=== PATIENT | male | born 1945 | race Caucasian/White ===

== ENCOUNTER 2019-06-27 06:59 | Outpatient (CLI) | payer MEDICARE, SELFPAY ==
[2019-06-27 07:10] LABS: Add Urine Microscopic? NO; Appearance Urine Clear (Clear); Basophils Absolute Auto 0.05 K/mm3 (0.00-0.10); Basophils Percent Auto 0.8 % (0.0-1.0); Bilirubin Urine Negative (Negative); Blood Urine Negative (Negative); Color Urine Yellow (Yellow); Eosinophils Percent Auto 1.6 % (1.0-6.0); Glucose Urine UA Negative (Negative); Hematocrit 50.9 % (37.0-46.0); Hemoglobin 16.6 g/dL (12.4-15.3); Immature Granulocyte Absolute 0.01 K/mm3 (0.00-0.00); Immature Granulocyte Percent A 0.2 % (0.0-0.0); Ketones Urine Negative (Negative); Leukocyte Esterase Ur Negative (Negative); Lymphocytes Absolute Auto 2.27 K/mm3 (1.10-4.50); Lymphocytes Percent Auto 35.2 % (18.0-42.0); Mean Corpuscular HGB Conc 32.6 g/dL (32.0-36.0); Mean Corpuscular Hemoglobin 29.7 pg (27.0-31.0); Mean Corpuscular Volume 91.2 fL (78.0-102.0); Mean Platelet Volume 8.6 fl (8.7-11.0); Monocytes Absolute Auto 0.65 K/mm3 (0.10-0.90); Monocytes Percent Auto 10.1 % (2.0-11.0); Neutrophils Absolute Auto 3.4 K/mm3 (1.7-7.2); Neutrophils Percent Auto 52.1 % (50.0-70.0); Nitrate Urine Negative (Negative); Platelet Count Result 242 K/mm3 (150-420); Protein Urine Negative (Negative); Red Blood Count 5.58 M/mm3 (4.70-6.10); Red Cell Distribution Width 12.6 % (11.6-14.4); Specific Grav Ur 1.015 (1.010-1.020); Urobilinogen Urine 0.2 mg/dL (0.2-1.0); White Blood Count 6.5 K/mm3 (4.8-10.8)
[2019-06-27 08:24] LABS: Alanine Aminotransferase 34 U/L (16-63); Albumin Level 4.2 g/dL (3.4-5.0); Alkaline Phosphatase 97 U/L (46-116); Anion Gap 14.3 mmol/L (7-16); Aspartate Amino Transferase 26 U/L (15-37); Bilirubin,Total 0.8 mg/dL (0.00-1.00); Blood Urea Nitrogen 17 mg/dL (7-18); Calcium 9.2 mg/dL (8.5-10.1); Carbon Dioxide 30 mmol/L (21-32); Chloride 102 mmol/L (98-108); Cholesterol 163 mg/dL (0-200); Estimated Glomerular Filt Rate > 60; Glucose 87 mg/dL (70-99); HDL Direct 62 mg/dL (40-60); LDL Cholesterol Calculated 91 mg/dL (<130); Osmolality Calculated 294 mOsm/kg (285-295); Potassium 4.3 mmol/L (3.5-5.1); Sodium 142 mmol/L (136-145); Total Protein 7.3 g/dL (6.4-8.2); Triglycerides 52 mg/dL (0-150)
== END 2019-06-27 07:00 | disposition home or self-care (01) ==
PROVIDERS: PCP Internal Medicine; Visit Provider Internal Medicine
DX: E78.5 Hyperlipidemia, unspecified (principal); D50.9 Iron deficiency anemia, unspecified; I10 Essential (primary) hypertension
CPT/HCPCS: 36415; 80053; 80061; 81003; 85025

== ENCOUNTER 2019-09-21 08:32 | Outpatient (CLI) | payer MEDICARE, BC, SELFPAY ==
--- NOTE | ~2019-09-21 | XR_ITS ---
XR foot LT min 3V DATE: 09/21/2019 08:52 INDICATION: Left generalized foot pain TECHNIQUE: 3 weightbearing views COMPARISON: None FINDINGS: Distal Achilles tendon calcification. There is osteoarthritic change at the first metatarsophalangeal joint. There is osteoarthritic change at some of the interphalangeal joints. There is widening of the space between the second and third toes. No fracture, dislocation, periosteal reaction or bone destruction is evident. IMPRESSION: Polyarticular osteoarthritis Distal Achilles tendon calcification Reviewed, dictated and finalized at location B.
== END 2019-09-21 08:33 | disposition home or self-care (01) ==
PROVIDERS: PCP Internal Medicine; Visit Provider Orthopaedic Surgery
DX: M79.672 Pain in left foot (principal)
CPT/HCPCS: 73630

== ENCOUNTER 2020-01-13 07:09 | Outpatient (CLI) | payer MEDICARE, SELFPAY ==
[2020-01-13 07:23] LABS: Add Urine Microscopic? NO; Appearance Urine Clear (Clear); Bilirubin Urine Negative (Negative); Blood Urine Negative (Negative); Color Urine Yellow (Yellow); Glucose Urine UA Negative (Negative); Ketones Urine Negative (Negative); Leukocyte Esterase Ur Negative (Negative); Nitrate Urine Negative (Negative); Protein Urine Negative (Negative); pH Urine 6.5 (5.0-8.0)
[2020-01-13 07:25] LABS: Basophils Absolute Auto 0.04 K/mm3 (0.00-0.10); Basophils Percent Auto 0.7 % (0.0-1.0); Eosinophils Absolute Auto 0.14 K/mm3 (0.02-0.50); Eosinophils Percent Auto 2.4 % (1.0-6.0); Hematocrit 49.8 % (37.0-46.0); Hemoglobin 16.3 g/dL (12.4-15.3); Immature Granulocyte Absolute 0.02 K/mm3 (0.00-0.00); Immature Granulocyte Percent A 0.3 % (0.0-0.0); Lymphocytes Absolute Auto 1.94 K/mm3 (1.10-4.50); Lymphocytes Percent Auto 33.2 % (18.0-42.0); Mean Corpuscular HGB Conc 32.7 g/dL (32.0-36.0); Mean Corpuscular Volume 91.7 fL (78.0-102.0); Mean Platelet Volume 8.6 fl (8.7-11.0); Monocytes Absolute Auto 0.59 K/mm3 (0.10-0.90); Monocytes Percent Auto 10.1 % (2.0-11.0); Neutrophils Absolute Auto 3.1 K/mm3 (1.7-7.2); Neutrophils Percent Auto 53.3 % (50.0-70.0); Platelet Count Result 257 K/mm3 (150-420); Red Blood Count 5.43 M/mm3 (4.70-6.10); Red Cell Distribution Width 12.7 % (11.6-14.4); White Blood Count 5.8 K/mm3 (4.8-10.8)
[2020-01-13 09:00] LABS: Alanine Aminotransferase 31 U/L (16-63); Albumin Level 4.1 g/dL (3.4-5.0); Alkaline Phosphatase 101 U/L (46-116); Anion Gap 7 mmol/L (8-16); Aspartate Amino Transferase 21 U/L (15-37); Bilirubin,Total 0.9 mg/dL (0.00-1.00); Blood Urea Nitrogen 19 mg/dL (7-18); Calcium 8.7 mg/dL (8.5-10.1); Carbon Dioxide 30 mmol/L (21-32); Chloride 103 mmol/L (98-108); Cholesterol 160 mg/dL (0-200); Creatine Kinase 77 U/L (39-308); Estimated Glomerular Filt Rate > 60; Ferritin 167 ng/mL (26-388); Glucose 88 mg/dL (70-99); HDL Direct 54 mg/dL (40-60); Iron 120 ug/dL (65-175); LDL Cholesterol Calculated 94 mg/dL (<130); Osmolality Calculated 291 mOsm/kg (285-295); Percent Iron Saturation 36 % (12-57); Potassium 4.4 mmol/L (3.5-5.1); Sodium 140 mmol/L (136-145); Total Protein 7.1 g/dL (6.4-8.2); Triglycerides 62 mg/dL (0-150)
== END 2020-01-13 07:10 | disposition home or self-care (01) ==
PROVIDERS: PCP Internal Medicine; Visit Provider Internal Medicine
DX: D50.0 Iron deficiency anemia secondary to blood loss (chronic) (principal); I10 Essential (primary) hypertension
CPT/HCPCS: 36415; 80053; 80061; 81003; 82550; 82728; 83540; 83550; 85025

== ENCOUNTER 2020-07-16 07:08 | Outpatient (CLI) | payer MEDICARE, BC, SELFPAY ==
[2020-07-16 07:24] LABS: Basophils Absolute Auto 0.04 K/mm3 (0.00-0.10); Basophils Percent Auto 0.7 % (0.0-1.0); Eosinophils Percent Auto 1.7 % (1.0-6.0); Hematocrit 48.1 % (37.0-46.0); Hemoglobin 15.8 g/dL (12.4-15.3); Immature Granulocyte Absolute 0.01 K/mm3 (0.00-0.00); Immature Granulocyte Percent A 0.2 % (0.0-0.0); Lymphocytes Absolute Auto 1.67 K/mm3 (1.10-4.50); Lymphocytes Percent Auto 28.4 % (18.0-42.0); Mean Corpuscular HGB Conc 32.8 g/dL (32.0-36.0); Mean Corpuscular Hemoglobin 30.4 pg (27.0-31.0); Mean Corpuscular Volume 92.5 fL (78.0-102.0); Mean Platelet Volume 8.6 fl (8.7-11.0); Monocytes Absolute Auto 0.57 K/mm3 (0.10-0.90); Monocytes Percent Auto 9.7 % (2.0-11.0); Neutrophils Absolute Auto 3.5 K/mm3 (1.7-7.2); Neutrophils Percent Auto 59.3 % (50.0-70.0); Platelet Count Result 301 K/mm3 (150-420); Red Cell Distribution Width 13.2 % (11.6-14.4); White Blood Count 5.9 K/mm3 (4.8-10.8)
[2020-07-16 07:37] LABS: Add Urine Microscopic? NO; Appearance Urine Clear (Clear); Bilirubin Urine Negative (Negative); Blood Urine Negative (Negative); Color Urine Yellow (Yellow); Glucose Urine UA Negative (Negative); Ketones Urine Negative (Negative); Leukocyte Esterase Ur Negative (Negative); Nitrate Urine Negative (Negative); Protein Urine Negative (Negative); Urobilinogen Urine 0.2 mg/dL (0.2-1.0); pH Urine 7.5 (5.0-8.0)
[2020-07-16 08:54] LABS: Alanine Aminotransferase 32 U/L (16-63); Albumin Level 3.8 g/dL (3.4-5.0); Alkaline Phosphatase 118 U/L (46-116); Anion Gap 8 mmol/L (8-16); Aspartate Amino Transferase 18 U/L (15-37); Bilirubin,Total 0.7 mg/dL (0.00-1.00); Blood Urea Nitrogen 11 mg/dL (7-18); Carbon Dioxide 31 mmol/L (21-32); Chloride 102 mmol/L (98-108); Cholesterol 174 mg/dL (0-200); Estimated Glomerular Filt Rate > 60; Ferritin 176 ng/mL (26-388); Glucose 86 mg/dL (70-99); HDL Direct 61 mg/dL (40-60); Iron 94 ug/dL (65-175); LDL Cholesterol Calculated 96 mg/dL (<130); Osmolality Calculated 290 mOsm/kg (285-295); Percent Iron Saturation 28 % (12-57); Potassium 4.6 mmol/L (3.5-5.1); Sodium 141 mmol/L (136-145); Total Protein 6.8 g/dL (6.4-8.2); Triglycerides 84 mg/dL (0-150)
== END 2020-07-16 07:09 | disposition home or self-care (01) ==
LOC: CHSLAB 07:10
PROVIDERS: PCP Internal Medicine; Visit Provider Internal Medicine
DX: D50.9 Iron deficiency anemia, unspecified (principal); I10 Essential (primary) hypertension; E78.5 Hyperlipidemia, unspecified
CPT/HCPCS: 36415; 80053; 80061; 81003; 82728; 83540; 83550; 85025

== ENCOUNTER 2020-08-02 11:55 | Outpatient (CLI) | payer MEDICARE, BC, SELFPAY ==
--- NOTE | ~2020-08-02 | XR_ITS ---
XR chest 2V 08/02/2020 12:24 Indication: Atrial fibrillation Procedure: 2 view chest Comparison: Comparison to multiple prior studies sequentially, with oldest reviewed study dated 10/05. Findings: Large hiatal hernia. No focal air space disease, pulmonary edema, pleural effusion or suspe cted pneumothorax. Mildly elevated left diaphragm, chronic. Chronic compression fracture of a midthor acic vertebra with vertebroplasty change. No acute osseous abnormality. Impression: 1: No acute cardiopulmonary disease. Reviewed, dictated and finalized at location A. Impression: 1: No acute cardiopulmonary disease.
[2020-08-02 12:53] LABS: Free T3 2.53 pg/mL (2.18-3.98); Free T4 Free Thyroxine 0.88 ng/dL (0.76-1.46); Magnesium 2.1 mg/dL (1.8-2.4); Thyroid Stimulating Hormone 1.03 uIU/mL (0.36-3.74)
--- NOTE | 2020-08-03 13:34 | WPDHOLTEREM ---
Holter/Event Monitor Holter/Event Monitor Date of procedure: 08/02/20 Procedure Type: 24 hour holter monitor Indications: Atrial fibrillation Conclusion: 1. 24 hour holter monitor on 08/02/20. 2. Underlying rhythm is sinus rhythm. HR range 51-118 bpm; average HR 65 bpm. 3. There are 154 premature supraventricular complexes and 1 supraventricular couplets. No supraventricular tachycardia. 4. There are 92 premature ventricular complexes. No ventricular tachycardia. 5. No sinoatrial or atrioventricular blocks. No significant pauses greater than 2 seconds. 6. Patient reports an episode of symptom of chest heaviness which demonstrate sinus rhythm at 65 bpm.
== END 2020-08-02 11:56 | disposition home or self-care (01) ==
LOC: CHSLAB 11:58
PROVIDERS: PCP Internal Medicine; Visit Provider Internal Medicine
DX: I48.91 Unspecified atrial fibrillation (principal)
CPT/HCPCS: 36415; 71046; 83735; 84439; 84443; 84481; 93225; 93226

== ENCOUNTER 2020-08-05 12:27 | Outpatient (CLI) | payer MEDICARE, BC, SELFPAY | END 2020-08-05 12:28 | disposition home or self-care (01) | LOC: CHSIMG 12:30 | PROVIDERS: PCP Internal Medicine; Visit Provider Internal Medicine | DX: I48.91 Unspecified atrial fibrillation (principal) | CPT/HCPCS: C8929 ==

== ENCOUNTER 2020-08-29 08:03 | Outpatient (CLI) | payer MEDICARE, BC, SELFPAY ==
--- NOTE | 2020-08-29 09:30 | EST_ITS ---
Patient Info Name: Tc Engel Age: 74 years : 1945 Gender: Male Ht: 69 in Wt: 202 lbs BSA: 2.14 m2 HR: 58 bpm BP: 147 / 97 mmHg Heart Rhythm: Bradycardia Technical Quality: Excellent Exam Date: 08/29/2020 9:35 AM Exam Location: [facility] Patient Status: Outpatient Admit Date: 08/29/2020 Staff Ordering Physician: Kelsea, Ami Ford APRN Attending Provider: Haris, Ami Ford APRN Exercise Technologist: Radha Grimes CRT Exercise Physician: Raven Carpenter CEP Exam Type: CA stress jarad w NM Study Info Indications AFIb - ChestPain - A nuclear stress test was performed. History/Risk Factors Hypertension: Yes Dyslipidemia: No Congenital Heart Disease (CHD): No Peripheral Arterial Disease (PAD): No Myocardial Infarction (OR): No Obesity: No Renal Disease: No Congestive Heart Failure (CHF): No Cardiomyopathy/LV Systolic Dysfunction: No Diabetes Mellitus: No COPD: No Tobacco Use: Former Cerebrovascular Disease: No Family History: Congenital Heart Disease DVT Treatment: Apixaban Deep Vein Thrombosis (DVT): None Dialysis: None History/Risk Factors HTN. Frailty Scale (CSHA): 2: Well Cardiac Arrest: No Summary 1. 1. Negative lexiscan stress test for ischemic ST changes by ECG criteria. 2. 2. Stable hemodynamics throughout the test. 3. 3. Nuclear scan to follow and will be reported separately. Please correlate with it. Protocol: LEXISCAN Stress ECG Details Stage: REST Duration (min): 1 min : 58 sec HR (bpm): 58 SBP (mmHg): 147 DBP (mmHg): 97 Stage: REST Duration (min): 10 min : 57 sec HR (bpm): 55 SBP (mmHg): 147 DBP (mmHg): 97 Stage: STAGE 1 Duration (min): 0 min : 6 sec HR (bpm): 58 SBP (mmHg): 147 DBP (mmHg): 97 Stage: RECOVERY Duration (min): 0 min : 53 sec HR (bpm): 67 SBP (mmHg): 147 DBP (mmHg): 97 Stage: RECOVERY Duration (min): 1 min : 53 sec HR (bpm): 78 SBP (mmHg): 118 DBP (mmHg): 79 Stage: RECOVERY Duration (min): 2 min : 53 sec HR (bpm): 72 SBP (mmHg): 113 DBP (mmHg): 80 Stage: RECOVERY Duration (min): 3 min : 53 sec HR (bpm): 70 SBP (mmHg): 124 DBP (mmHg): 82 Stage: RECOVERY Duration (min): 4 min : 53 sec HR (bpm): 70 SBP (mmHg): 129 DBP (mmHg): 82 Stage: RECOVERY Duration (min): 5 min : 53 sec HR (bpm): 67 SBP (mmHg): 129 DBP (mmHg): 82 Stage: RECOVERY Duration (min): 6 min : 5 sec HR (bpm): 66 SBP (mmHg): 129 DBP (mmHg): 82 Rest HR: 55 bpm Peak HR: 78 bpm Rest Sys BP: 147 mmHg Peak Sys BP: 129 mmHg Max Pred HR: 145 bpm % Max Pred HR: 54 % Target HR: 123 bpm Max RPP: 10,062 bpm*mmHg Termination Reason: Completion of Protocol Cardiac Symptoms: Dyspnea Total Time: 0 min : 6 sec Rest Garcia BP: 97 mmHg Peak Garcia BP: 82 mmHg Total Dose: 0.4 mg Resting ECG Sinus bradycardia, IRBBB. Stress ECG No ST adrienne
--- NOTE | 2020-08-29 12:49 | WPDCARIOSTRE ---
Nuclear Stress Test INDICATIONS Indications: Chest pain PROCEDURE Procedure Performed: Myocardial Perf Spect-Multi Procedure: Patient underwent a lexiscan stress test and immediately was injected with 32.6 mCi of cardiolyte. Multiple tomographic images were obtained. These are of good quality. There is no evidence of decreased perfusion with stress imaging. A separate resting images were obtained after patient was injected with 9.9 mCi of cardiolyte. Multiple tomographic images were obtained. These are of good quality. There is no evidence of decreased perfusion with rest imaging. CONCLUSION Conclusion: 1. Normal myocardial perfusion imaging demonstrating no evidence of decreased perfusion during stress or rest imaging. 2. No reversible ischemia. 3. Left ventriculogram demonstrates normal measured ejection fraction of 62% with no wall motion abnormalities. 4. TID score is normal at 1.14.
== END 2020-08-29 08:04 | disposition home or self-care (01) ==
LOC: CHSIMG 08:04
PROVIDERS: PCP Internal Medicine; Visit Provider Internal Medicine Cardiovascular Disease
DX: R07.9 Chest pain, unspecified (principal); I48.91 Unspecified atrial fibrillation; I10 Essential (primary) hypertension; R26.2 Difficulty in walking, not elsewhere classified
CPT/HCPCS: 78452; 93017; A9502; J2785

== ENCOUNTER 2021-06-23 06:59 | Outpatient (CLI) | payer MEDICARE, SELFPAY ==
[2021-06-23 07:12] LABS: Add Urine Microscopic? NO; Appearance Urine Clear (Clear); Basophils Absolute Auto 0.04 K/mm3 (0.00-0.10); Basophils Percent Auto 0.6 % (0.0-1.0); Bilirubin Urine Negative (Negative); Blood Urine Negative (Negative); Color Urine Light Yellow (Yellow); Eosinophils Absolute Auto 0.15 K/mm3 (0.02-0.50); Eosinophils Percent Auto 2.3 % (1.0-6.0); Glucose Urine UA Negative (Negative); Hematocrit 46.4 % (37.0-46.0); Hemoglobin 15.5 g/dL (12.4-15.3); Immature Granulocyte Absolute 0.02 K/mm3 (0.00-0.00); Immature Granulocyte Percent A 0.3 % (0.0-0.0); Ketones Urine Negative (Negative); Leukocyte Esterase Ur Negative LEU/UL (Negative); Lymphocytes Absolute Auto 2.16 K/mm3 (1.10-4.50); Lymphocytes Percent Auto 33.4 % (18.0-42.0); Mean Corpuscular HGB Conc 33.4 g/dL (32.0-36.0); Mean Corpuscular Hemoglobin 30.9 pg (27.0-31.0); Mean Corpuscular Volume 92.4 fL (78.0-102.0); Mean Platelet Volume 8.7 fl (8.7-11.0); Monocytes Percent Auto 9.3 % (2.0-11.0); Neutrophils Absolute Auto 3.5 K/mm3 (1.7-7.2); Neutrophils Percent Auto 54.1 % (50.0-70.0); Nitrate Urine Negative (Negative); Platelet Count Result 236 K/mm3 (150-420); Protein Urine Negative (Negative); Red Blood Count 5.02 M/mm3 (4.70-6.10); Red Cell Distribution Width 13.3 % (11.6-14.4); Specific Grav Ur 1.015 (1.010-1.020); Urobilinogen Urine 0.2 mg/dL (0.2-1.0); White Blood Count 6.5 K/mm3 (4.8-10.8); pH Urine 7.5 (5.0-8.0)
[2021-06-23 08:17] LABS: Alanine Aminotransferase 31 U/L (16-63); Albumin Level 3.8 g/dL (3.4-5.0); Alkaline Phosphatase 104 U/L (46-116); Anion Gap 6 mmol/L (8-16); Aspartate Amino Transferase 18 U/L (15-37); Bilirubin,Total 0.7 mg/dL (0.00-1.00); Blood Urea Nitrogen 14 mg/dL (7-18); Carbon Dioxide 30 mmol/L (21-32); Chloride 103 mmol/L (98-108); Cholesterol 152 mg/dL (0-200); Estimated Glomerular Filt Rate > 60; Ferritin 95 ng/mL (26-388); Glucose 91 mg/dL (70-99); HDL Direct 62 mg/dL (40-60); Iron 84 ug/dL (65-175); LDL Cholesterol Calculated 76 mg/dL (<130); Osmolality Calculated 288 mOsm/kg (285-295); Percent Iron Saturation 26 % (12-57); Potassium 4.4 mmol/L (3.5-5.1); Sodium 139 mmol/L (136-145); Total Protein 6.5 g/dL (6.4-8.2); Triglycerides 69 mg/dL (0-150)
== END 2021-06-23 07:00 | disposition home or self-care (01) ==
LOC: CHSLAB 07:01
PROVIDERS: PCP Internal Medicine; Visit Provider Internal Medicine
DX: I10 Essential (primary) hypertension (principal); D50.0 Iron deficiency anemia secondary to blood loss (chronic); N39.0 Urinary tract infection, site not specified
CPT/HCPCS: 36415; 80053; 80061; 81003; 82728; 83540; 83550; 85025

== ENCOUNTER 2021-07-18 08:48 | Outpatient (CLI) | payer MEDICARE, BC, SELFPAY | END 2021-07-18 08:49 | disposition home or self-care (01) | LOC: CHSOUTPT 09:11 | PROVIDERS: PCP Internal Medicine; Visit Provider Specialist | DX: C44.629 Squamous cell carcinoma of skin of left upper limb, including shoulder (principal) | CPT/HCPCS: 88305 ==

== ENCOUNTER 2021-12-12 10:30 | Outpatient (CLI) | payer MEDICARE, BC, SELFPAY ==
--- NOTE | ~2021-12-12 | XR_ITS ---
EXAMINATION: XR lumbar spine 2-3V DATE: 12/12/2021 10:59 INDICATION: Low back pain. TECHNIQUE: 3 views of lumbar spine were obtained. COMPARISON: Chest 2 views 08/02/2020 FINDINGS: There is 8 degrees dextrocurvature of thoracolumbar spine. There is a compression fracture of T12 with 2/5 loss of height. There is mildly decreased disc height at L4-L5. There is multilevel f acet joint osteoarthritis, severe in lower lumbar spine. IMPRESSION: 1. Age-indeterminate T12 compression fracture, new from 08/02/2020. 2. Mild lumbar spondylosis. Reviewed, dictated and finalized at location A.
--- NOTE | ~2021-12-12 | XR_ITS ---
XR thoracic spine 3V DATE: 12/12/2021 11:00 INDICATION: Acute mid and low back pain TECHNIQUE: AP, lateral, swimmer views COMPARISON: 04/27/2013 CT thorax FINDINGS: Mild anterolisthesis at C4-5. Severe degenerative disc disease at C5-6. Mild thoracic spine dextroscoliosis. Chronic moderate compression fracture and vertebroplasty at T9. Moderate anterior wedge compression fracture deformity of T12 of uncertain age. Mild degenerative spurring of the thoracic spine. No paraspinal soft tissue thickening. Diffuse osteopenia. Large chronic hiatal hernia, also present on 04/27/2013. IMPRESSION: Mild T12 compression fracture of uncertain age, new since 04/27/2013 Chronic T9 compression fracture and vertebroplasty Osteopenia Mild degenerative change Mild dextroscoliosis Osteopenia Reviewed, dictated and finalized at location A.
--- NOTE | ~2021-12-12 | XR_ITS ---
EXAMINATION: XR hip LT min 2V DATE: 12/12/2021 10:58 INDICATION: Left hip deformity. TECHNIQUE: 2 views of left hip were obtained. COMPARISON: None. FINDINGS: Bone alignment is normal. No fracture. There is moderate left hip osteoarthritis. IMPRESSION: 1. Moderate left hip osteoarthritis. Reviewed, dictated and finalized at location A.
--- NOTE | ~2021-12-12 | XR_ITS ---
EXAMINATION: XR hip RT min 2V DATE: 12/12/2021 10:59 INDICATION: Back pain. TECHNIQUE: 2 views of right hip were obtained. COMPARISON: None. FINDINGS: Bone alignment is normal. No fracture. There is mild right hip osteoarthritis. IMPRESSION: 1. Mild right hip osteoarthritis. Reviewed, dictated and finalized at location A.
== END 2021-12-12 10:31 | disposition home or self-care (01) ==
PROVIDERS: PCP Internal Medicine; Visit Provider Internal Medicine
DX: M54.6 Pain in thoracic spine (principal); M54.50 Low back pain, unspecified
CPT/HCPCS: 72072; 72100; 73502

== ENCOUNTER 2021-12-13 14:54 | Outpatient (CLI) | payer MEDICARE, BC, SELFPAY ==
--- NOTE | ~2021-12-13 | CT_ITS ---
EXAMINATION: CT lumbar spine wo con DATE: 12/13/2021 15:26 INDICATION: Back pain. Fracture. TECHNIQUE: Computed tomography (CT) of the lumbar spine was performed without intravenous contrast. T he dose-length product was 725.31 mGy-cm. Automated exposure control and iterative reconstruction barry hnique were employed. COMPARISON: Lumbar spine series dated 12/12/2021 FINDINGS: There is an acute/subacute burst fracture of T12 with approximately 30% loss of vertebral b juan height anteriorly. There is degenerative disc disease at T11-12. There is lower lumbar facet hype rtrophy with grade 1 degenerative spondylolisthesis at L4-5. There is a 4 mm right UVJ stone with rig ht hydroureteronephrosis. Colonic diverticulosis without diverticulitis. There is atherosclerosis of the aorta. IMPRESSION: 1. Acute/subacute T12 burst fracture, stable compared with 12/12/2021. 2: Right UVJ stone measuring 4 mm with mild right hydroureteronephrosis. 3: Moderate lumbar spondylosis. Reviewed, dictated and finalized at location B.
--- NOTE | ~2021-12-13 | CT_ITS ---
EXAMINATION: CT thoracic spine wo con DATE: 12/13/2021 15:27 INDICATION: Back pain. T12 fracture. TECHNIQUE: Computed tomography (CT) of the thoracic spine was performed without intravenous contrast. Automated exposure control and iterative reconstruction technique were employed. The dose-length pro duct was 891.79 mGy-cm. COMPARISON: Thoracic spine radiographs 12/12/2021 FINDINGS: There is a large sliding hiatal hernia. There is a portion of the transverse colon in the h ernia. There is mild right hydronephrosis and hydroureter. There is a 4 mm stone at right ureterovesi cular junction. There is kyphosis of thoracic spine. There is 11 degrees dextroscoliosis of thoracic spine. There is mild chronic anterior wedging of T4, T7, T8, T10, and T11 vertebral bodies. There is a chronic compression fracture of T9 with changes of vertebroplasty. There is a burst fracture of T12 with 1/5 loss of height and retropulsion of bone 2 mm into central spinal canal. There is mild to mo derately decreased disc height at multiple levels. There is facet joint osteoarthritis at many levels , severe on the right at T2-T3 and T3-T4. There is multilevel mild neural foraminal stenosis bilatera lly. There is mild central canal stenosis at T7-T8 and T11-T12. IMPRESSION: 1. Acute/subacute T12 burst fracture, stable from 12/12/21. 2. Moderate thoracic spondylosis. 3. 4 mm stone at right ureterovesicular junction with mild right hydronephrosis and hydroureter. 4. Large sliding hiatal hernia. Reviewed, dictated and finalized at location A.
== END 2021-12-13 14:55 | disposition home or self-care (01) ==
LOC: CHSIMG 14:56
PROVIDERS: PCP Internal Medicine; Visit Provider Internal Medicine
DX: M54.50 Low back pain, unspecified (principal)
CPT/HCPCS: 72128; 72131

== ENCOUNTER 2021-12-15 09:01 | Outpatient (CLI) | payer MEDICARE, BC, SELFPAY ==
--- NOTE | ~2021-12-15 | XR_ITS ---
XR abdomen/kub 1V 12/15/2021 09:24 Indication: Right ureteral stone. Right flank pain. Procedure: KUB Comparison: 01/24/2010 Findings: Bowel gas pattern is nonobstructive. No definite renal stones. The left kidney is obscured by bowel content. There are pelvic phleboliths. There is a new calcification in the right pelvis, con sistent with distal ureteral stone. Nonobstructive bowel pattern. There is moderate lumbar spondylosis. There is a large hiatal hernia. Impression: 1: Distal right ureteral stone near the UPJ measuring 4 mm. Reviewed, dictated and finalized at location B. Impression: 1: Distal right ureteral stone near the UPJ measuring 4 mm.
== END 2021-12-15 09:02 | disposition home or self-care (01) ==
PROVIDERS: PCP Internal Medicine; Visit Provider Urology
DX: R10.9 Unspecified abdominal pain (principal); N20.1 Calculus of ureter
CPT/HCPCS: 74018

== ENCOUNTER 2022-01-31 08:47 | Outpatient (RCR) | payer MEDICARE, BC, SELFPAY ==
--- NOTE | 2022-01-31 08:05 | PTOPEVAL1 ---
Assessment and note entered by JT File, PT Evaluation Information Assessment Status Evaluation Diagnosis s/p T12 kypho, low back pain, thoracic pain Onset 01/15/22 Subjective Information patient reports he is anxious to get back to the gym. he reports prior to needing surgery he was in the gym 5 days per week. he reports he had a cemented T12 surgery to fix a compression fracture . he reports he was having pain in the back for a while, and tried to use modalities on his own at home. he reports he eventually had an xray and then surgery. he reports since surgery he has been slowly getting back into the gym. he reports the pain from his compression fracture is gone. he reports the only pain he has had has been in the muscles of his back when lifting. Reported Pain Level Pain Score 0: Self Report Assessment PT Clinical Summary mr. mike presents to skilled PT about 2 weeks post T12 spinal cementing surgery. he presents this date with no pain, normal gait mechanics, good LE strength, but weakness of the core and poor posture. he would do well to attend skilled PT to improve his core strength, postural awareness, and return to all prior level activities with decreased risk for re-injury. Plan of Care Interventions Manual Therapy,Neuro Re-education,Patient/ Caregiver Educati,Therapeutic Activities, Therapeutic Exercise PT Services Indicated Yes Treatment Frequency and 1x weekly for 3 visits Duration These treatments will address the objective and functional deficits as defined above. The patient will be advanced safely and appropriately in order for the patient to progress towards his/her prior level of function. Additional exercises will be introduced and as well as a comprehensive home exercise program upon discharge, if needed, ?to ensure carryover of functional gains achieved in the clinic. This treatment plan has been reviewed and agreement upon by the patient.
--- NOTE | 2022-02-14 09:10 | PTOPDC ---
Assessment and note entered by JT File, PT Evaluation Information Assessment Status Discharge Diagnosis s/p T12 kypho, low back pain, thoracic pain Onset 01/15/22 Subjective Information patient reports he feels good this date. he reports he is back to the gym and ready to DC therapy. Reported Pain Level Pain Score 0: Self Report Assessment PT Clinical Summary mr. mike presents to PT for his 3rd skilled therapy visit this date. he has made improvements in core strength, lifting mechanics, and pain reduction. he has not met many goals, but is back to his prior level functional activities. he will DC skilled PT this date and continue with HEP independent at home. Plan of Care Treatment Frequency and DC to independent HEP Duration
== END 2022-02-14 16:01 | disposition home or self-care (01) ==
LOC: CHSPT 08:47
PROVIDERS: PCP Internal Medicine; Visit Provider Nurse Practitioner Family
DX: M54.6 Pain in thoracic spine (principal); M54.50 Low back pain, unspecified
CPT/HCPCS: 97110; 97161; 97530

== ENCOUNTER 2022-05-28 07:12 | Outpatient (CLI) | payer MEDICARE, SELFPAY ==
[2022-05-28 07:35] LABS: Basophils Absolute Auto 0.03 K/mm3 (0.00-0.10); Basophils Percent Auto 0.4 % (0.0-1.0); Eosinophils Absolute Auto 0.13 K/mm3 (0.02-0.50); Eosinophils Percent Auto 1.9 % (1.0-6.0); Hematocrit 43.2 % (37.0-46.0); Hemoglobin 14.2 g/dL (12.4-15.3); Immature Granulocyte Absolute 0.02 K/mm3 (0.00-0.00); Immature Granulocyte Percent A 0.3 % (0.0-0.0); Lymphocytes Absolute Auto 1.44 K/mm3 (1.10-4.50); Lymphocytes Percent Auto 21.5 % (18.0-42.0); Mean Corpuscular HGB Conc 32.9 g/dL (32.0-36.0); Mean Corpuscular Hemoglobin 30.3 pg (27.0-31.0); Mean Corpuscular Volume 92.3 fL (78.0-102.0); Mean Platelet Volume 8.3 fl (8.7-11.0); Monocytes Absolute Auto 0.62 K/mm3 (0.10-0.90); Monocytes Percent Auto 9.3 % (2.0-11.0); Neutrophils Absolute Auto 4.5 K/mm3 (1.7-7.2); Neutrophils Percent Auto 66.6 % (50.0-70.0); Platelet Count Result 261 K/mm3 (150-420); Red Blood Count 4.68 M/mm3 (4.70-6.10); Red Cell Distribution Width 13.3 % (11.6-14.4); White Blood Count 6.7 K/mm3 (4.8-10.8)
[2022-05-28 07:36] LABS: Appearance Urine Clear (Clear); Bilirubin Urine Negative (Negative); Blood Urine Negative (Negative); Glucose Urine UA Negative (Negative); Ketones Urine Negative (Negative); Leukocyte Esterase Ur Negative (Negative); Nitrate Urine Negative (Negative); Protein Urine Negative (Negative)
[2022-05-28 07:53] LABS: Add Urine Microscopic? YES; Bacteria Urine Trace /hpf; Color Urine Dark Yellow (Yellow); RBC Urine None seen /hpf (0-2); WBC Urine None seen /hpf (0-3)
[2022-05-28 08:22] LABS: Alanine Aminotransferase 29 U/L (16-63); Albumin Level 3.3 g/dL (3.4-5.0); Alkaline Phosphatase 129 U/L (46-116); Anion Gap 4 mmol/L (8-16); Aspartate Amino Transferase 25 U/L (15-37); Bilirubin,Total 0.8 mg/dL (0.00-1.00); Blood Urea Nitrogen 15 mg/dL (7-18); Calcium 8.8 mg/dL (8.5-10.1); Carbon Dioxide 32 mmol/L (21-32); Chloride 106 mmol/L (98-108); Estimated Glomerular Filt Rate > 60; Free T3 2.52 pg/mL (2.18-3.98); Free T4 Free Thyroxine 1.05 ng/dL (0.76-1.46); Glucose 95 mg/dL (70-99); Iron 77 ug/dL (65-175); NT Pro B Type Natriuretic Pept 287 pg/mL (0-450); Osmolality Calculated 294 mOsm/kg (285-295); Potassium 4.3 mmol/L (3.5-5.1); Prostate Specific Antigen 1.8 ng/mL (< OR = 4.0); Sodium 142 mmol/L (136-145); Thyroid Stimulating Hormone 0.61 uIU/mL (0.36-3.74); Total Protein 6.6 g/dL (6.4-8.2)
== END 2022-05-28 07:13 | disposition home or self-care (01) ==
PROVIDERS: PCP Internal Medicine; Visit Provider Internal Medicine
DX: D50.0 Iron deficiency anemia secondary to blood loss (chronic) (principal); I10 Essential (primary) hypertension; I48.19 Other persistent atrial fibrillation; Z12.5 Encounter for screening for malignant neoplasm of prostate; I50.9 Heart failure, unspecified
CPT/HCPCS: 36415; 80053; 81001; 83540; 83880; 84153; 84439; 84443; 84481; 85025; G0103

== ENCOUNTER 2022-09-07 08:07 | Outpatient (CLI) | payer MEDICARE, BC, SELFPAY ==
--- NOTE | ~2022-09-07 | CT_ITS ---
Clinical Indication: Weight loss CT Scan of the Chest, Abdomen, and Pelvis with Contrast: Technique: Contiguous sections were acquired throughout the chest, abdomen, and pelvis after intraven ous administration of 100 cc of Omnipaque 350. Dose reduction technique was used on this scan by noelle gregg automated exposure control and iterative reconstruction technique. The dose-length product (DL P) was 643.05 mGy-cm. COMPARISON: 01/10/2010 Findings: There is no evidence of any significant mediastinal, hilar or axillary lymphadenopathy. The mediastin al vascular structures appear normal. There is a large hiatal hernia, containing essentially the enti re stomach, with organoaxial volvulus. The also hernia also contains a large portion of the transvers e colon. There is no evidence of pleural or pericardial effusion. The lungs are clear. No pulmonary nodules or infiltrates are noted. The liver, spleen, pancreas, adrenals and kidneys are within normal limits. Gallbladder not visualize d. There are atherosclerotic calcifications of the aorta. No lymphadenopathy. No bowel obstruction or bowel wall thickening. There is extensive sigmoid diverticulosis. Urinary bladder is unremarkable. Prostate gland is significantly enlarged. No ascites. Vertebroplasty cement present at T9 and T12. Impression: Large hiatal hernia containing the entire stomach and a large portion of the transverse colon, as det douglas above. Enlarged prostate gland. Extensive sigmoid diverticulosis. Reviewed, dictated and finalized at location . Impression: Large hiatal hernia containing the entire stomach and a large portion of the tr ansverse colon, as detailed above. Enlarged prostate gland. Extensive sigmoid diverticulosis.
[2022-09-07 08:39] LABS: Estimated Glomerular Filt Rate > 60
== END 2022-09-07 08:08 | disposition home or self-care (01) ==
LOC: CHSIMG 08:09
PROVIDERS: PCP Internal Medicine; Visit Provider Internal Medicine
DX: R31.9 Hematuria, unspecified (principal); R63.4 Abnormal weight loss; K44.9 Diaphragmatic hernia without obstruction or gangrene; N40.0 Benign prostatic hyperplasia without lower urinary tract symptoms; K57.90 Diverticulosis of intestine, part unspecified, without perforation or abscess without bleeding
CPT/HCPCS: 71260; 74177; Q9967

== ENCOUNTER 2022-10-25 10:19 | Outpatient (CLI) | payer MEDICARE, BC, SELFPAY ==
--- NOTE | 2022-10-25 10:26 | ECG_ITS ---
Measurements Intervals [place] Rate: 62 P: 34 NC: 150 QRS: 31 QRSD: 90 T: 30 QT: 411 QTc: 419 Interpretive Statements SINUS RHYTHM INCOMPLETE RIGHT BUNDLE BRANCH BLOCK BASELINE ARTIFACT- I, II, III, AVR, AVL, AVF BORDERLINE ECG NO PREVIOUS ECG AVAILABLE FOR COMPARISON Electronically Signed On 10-25-2022 11:53:32 CDT by Nirav Burgess D.O.
[2022-10-25 10:42] LABS: Hematocrit 46.6 % (42.0-52.0); Hemoglobin 14.8 g/dL (14.0-18.0)
== END 2022-10-25 10:20 | disposition home or self-care (01) ==
LOC: ANHSURGERY 10:23
PROVIDERS: Anesthesiology; PCP Internal Medicine; Visit Provider Surgery
DX: K40.90 Unilateral inguinal hernia, without obstruction or gangrene, not specified as recurrent (principal); I10 Essential (primary) hypertension; Z78.9 Other specified health status; Z01.818 Encounter for other preprocedural examination; I45.10 Unspecified right bundle-branch block
CPT/HCPCS: 36415; 85014; 85018; 86850; 86900; 86901; 93005

== ENCOUNTER 2022-10-30 00:25 | Day surgery (SDC) | payer MEDICARE, BC, SELFPAY ==
--- NOTE | 2022-10-24 15:27 | PC.NURSE ---
Report to the Outpatient Waiting Room, entrance under the green pavilion located off [facility], at time 0630 on date _10/30/22 . Planned Procedure Time: _0830 . Time changes happen often and if your time is changed the preop area will call you the afternoon before. - You and your visitor will be asked to self-screen and do not enter if you have any COVID symptoms. - A mask is optional within the hospital at this time. Patients may have clear liquids (water, carbonated beverages, clear teas, apple juice) until 3 hours prior to surgery with a maximum of 20 ounces. - No food from midnight until time of surgery - Infants may have breast milk until 4 hours before surgery, infant formula 6 hours prior to surgery. - Children will be allowed to drink immediately following surgery. If applicable, please bring a bottle or sippy cup to assist with drinking. Juice, water, soda, and popsicles are readily available. For infants on formula, please bring formula the day of surgery. Pacifiers are allowed. Take the following medications with a SIP of water the morning of surgery: ____METOPROLOL DO NOT STOP ANY OF YOUR OTHER PRESCRIPTION MEDICATIONS PRIOR TO SURGERY ?EXCEPT THE FOLLOWING Medications to discontinue per physician ___ASPIRIN 325MG DECREASE TO 81MG ONE WK PRIOR TO SURGERY.. ALL VITAMINS AND SUPPLEMENTS 3 DAY S LAST DOSE 10/26/22 HIBICLENS SHOWER MORNING OF SURGERY Please no make-up, nail mongolian, hairspray, perfume, deodorant, or body powder the day of surgery. No jewelry (including any body piercings) or valuables the day of surgery, leave them at home. Please take a shower or bath the night before, or the morning of, surgery with an antibacterial soap. Wear comfortable, loose fitting clothing. Children are encouraged to wear pajamas. - Jewelry must be removed prior to entering the operating room. Rings and piercings that are not removed may be cut off. - The hospital will not accept responsibility for valuables. - Please leave all valuables, including medications, at home the day of surgery. If you are going home after surgery, a licensed dump truck driver off highway must drive you home. - NO public transportation without another adult if you receive anesthesia. - We recommend that an adult stay with you for 24 hours following discharge. - We also recommend that you do not drive, make important decision, drink alcoholic beverages, or take any drugs that were not prescribed by your health care provider for at least 24 hours after your discharge time. For Pediatric surgeries, we recommend two adults accompany the child home. Follow any additional instructions given to you from your surgeon. If you or anyone in your household have experienced Covid symptoms in the past week, please notify your surgeon or the nurse liaison at the phone number below for possible testing. Telephone instructions given to _PATIENT AND KENNEDY and asked if any additional questions and then verbalized understanding. Patient advised to call surgeon office or pre surgery nurse liaison [phone] if any additional questions.
[2022-10-24 15:37] VITALS: BMI 25.8
[2022-10-30] VITALS (8 sets, daily range): BP systolic 125–145; BP diastolic 69–80; PULSE 54–66; RESP 12–18; TEMP 36.4–36.6; O2SAT 94–100; BMI 23.8
[2022-10-30] MEDS: LACTATED RINGERS 1,000 ML 30 ML IV CONT ×2 (06:45→10:51)
[2022-10-30] MEDS: ACETAMINOPHEN 500 MG TABLET 1000 MG PO (06:56)
[2022-10-30] MEDS: KETOROLAC 15 MG/ML VIAL (*BKC) IV PUSH (06:57)
--- NOTE | 2022-10-30 07:14 | PM.IMHP ---
H&P: HPI History of Present Illness Date/Time: 10/30/22 07:14 Chief Complaint: [facility] Narrative: 77 yo man presents for left inguinal hernia repair. He denies any changes since last seen in office. Review of Systems Review of Systems: All systems reviewed & are unremarkable except as noted in HPI and below Constitutional: Constitutional: Denies chills, Denies fever(s), Denies headache(s) and Denies weight loss Eyes: Eyes: Denies change in vision ENT: Denies dizziness, Denies headache(s), Denies neck mass and Denies throat swelling Cardiovascular: Cardiovascular: Denies chest pain, Denies lightheadedness and Denies dyspnea Respiratory: Respiratory: Denies cough, Denies dyspnea and Denies wheezing Gastrointestinal: Gastrointestinal: Denies abdominal pain, Denies change in bowel habits, Denies nausea and Denies vomiting Genitourinary: Genitourinary: Denies hematuria and Denies dysuria Musculoskeletal: Musculoskeletal: Reports as per HPI Integumentary/Breasts: Skin/Breast: Reports as per HPI Neurologic: Denies dizziness and Denies headache(s) Allergic/Immunologic: Allergic/Immunologic: Denies throat swelling and Denies wheezing [facility] Past Medical History Medical History (Updated 09/20/22 @ 16:44 by Tez Ulrich DO) Arthritis of foot, left Atrial fibrillation COPD (chronic obstructive pulmonary disease) Hypertension Kidney stones Peroneal tendinitis of left lower leg Radiculopathy of leg Surgical History Surgical History (Updated 09/20/22 @ 16:44 by Tez Ulrich DO) History of cholecystectomy History of joint replacement History of major abdominal surgery Family History Family History Father Family history of heart disease in male family member before age 55 Other Hypertension Social History Social History Smoking packs per day: 0.5 Smoking cigarettes per day: 10.0 Years smoked: 25 Smoking pack-years: 12.50 Smoking status: Former smoker Tobacco type: cigarettes Smoking end date: 02/18/89 Alcohol intake: current Drinks per week: 1 Living arrangements: with family Spiritual care concerns: No Meds Home Medications and Allergies Home Medications Medication Instructions Recorded Confirmed Type multivitamin 1 cap PO DAILY 09/22/19 10/24/22 History aspirin 325 mg tablet 325 mg PO DAILY 09/20/22 10/24/22 History ferrous sulfate 325 mg (65 mg 325 mg PO 2XW 09/20/22 10/24/22 History iron) tablet,delayed release losartan 50 mg tablet 100 mg PO DAILY 09/20/22 10/24/22 History sildenafil 50 mg tablet (Viagra) 50 mg PO DAILY PRN Erectile 09/20/22 10/24/22 History Dysfunction metoprolol tartrate 25 mg tablet 12.5 mg PO BID 10/24/22 10/24/22 History vit C 250 mg-vit E 90 mg-zinc 40 1 tablet PO BID 10/24/22 10/24/22 History mg-copper 1 [id number] capsule (PreserVision AREDS-2) Allergies Allergy/AdvReac Type Severity Reaction Status Date / Time amlodipine Allergy Mild Swelling Verified 10/24/22 15:22 Vital Signs Vital Signs - 24 hr 10/30/22 06:30 Temperature 36.4 C L Pulse Rate 58 L Respiratory Rate 16 Blood Pressure 144/78 H Pulse Oximetry 100 Oxygen Delivery Room Air Exam Const: General: no acute distress and alert Orientation/consciousness: patient oriented x3 HENMT: Head: normocephalic and atraumatic Ears: hearing grossly normal bilaterally Face/Nose/Sinus: Normal nares present Mouth: Yes Normal oral and palatal mucosa present Eyes: Periorbital: periorbital findings normal Sclera: sclerae normal EOM: EOMs intact bilaterally Neck: Neck: normal visual inspection, no lymphadenopathy and trachea midline Chest: Chest palpation & inspection: normal inspection of the chest Resp: Effort & Inspection: normal respiratory effort Auscultation: clear to auscultation bilaterally Cardio: Jugular venous di
--- NOTE | 2022-10-30 07:22 | WPDHPUPDATE1 ---
History and Physical Update Update Date/Time: 10/30/22 07:22 History and Physical has been reviewed, including an updated exam of the patient. There are NO changes in the patient's condition. Risks, benefits, and alternatives have been discussed and questions answered. Patient agrees to proceed with procedure.
--- NOTE | 2022-10-30 08:17 | WPDANESEPPF ---
Anes - Initial Pre Proc Eval Procedure: Operation Date: 10/30/22 08:30 Proposed Procedures p Laparoscopic Left Inguinal Hernia Repair with Mesh, Davinci Assisted - Tez Ulrich DO Date/Time: 10/30/22 08:17 Surgeon: Tez Ulrich DO Pre Op Diagnosis: left inguinal hernia Patient Data Age: 77 Gender: M Height: 1.8 m Weight: 77.6 kg Last Vital Signs Temp 36.4 C L 10/30/22 06:30 Pulse 58 L 10/30/22 06:30 Resp 16 10/30/22 06:30 BP 144/78 H 10/30/22 06:30 Pulse Ox 100 10/30/22 06:30 O2 Del Method Room Air 10/30/22 06:30 Allergies Allergy/AdvReac Type Severity Reaction Status Date / Time amlodipine Allergy Mild Swelling Verified 10/30/22 07:17 Home Medications Medication Instructions Recorded Confirmed Type multivitamin 1 cap PO DAILY 09/22/19 10/30/22 History aspirin 325 mg tablet 325 mg PO DAILY 09/20/22 10/30/22 History ferrous sulfate 325 mg (65 mg 325 mg PO 2XW 09/20/22 10/30/22 History iron) tablet,delayed release losartan 50 mg tablet 100 mg PO DAILY 09/20/22 10/24/22 History sildenafil 50 mg tablet (Viagra) 50 mg PO DAILY PRN Erectile 09/20/22 10/24/22 History Dysfunction metoprolol tartrate 25 mg tablet 12.5 mg PO BID 10/24/22 10/30/22 History vit C 250 mg-vit E 90 mg-zinc 40 1 tablet PO BID 10/24/22 10/30/22 History mg-copper 1 [id number] capsule (PreserVision AREDS-2) Patient hx anesthesia problems: none Family hx anesthesia problems: post op nausea/vomiting Results Review: All pre-operative results and documents have been reviewed as part of the pre-operative evaluation. [facility] Past Medical History Medical History Arthritis of foot, left Atrial fibrillation COPD (chronic obstructive pulmonary disease) Hypertension Kidney stones Peroneal tendinitis of left lower leg Radiculopathy of leg Surgical History Surgical History History of cholecystectomy History of joint replacement History of major abdominal surgery Family History Family History Father Family history of heart disease in male family member before age 55 Other Hypertension Social History Social History Smoking packs per day: 0.5 Smoking cigarettes per day: 10.0 Years smoked: 25 Smoking pack-years: 12.50 Smoking status: Former smoker Tobacco type: cigarettes Smoking end date: 02/18/89 Alcohol intake: current Drinks per week: 1 Living arrangements: with family Spiritual care concerns: No Anes - Eval Final PreProcedure Day of Procedure 10/30/22 08:17 Patient weight: normal Heart: regular rate and rhythm Lungs: clear to auscultation Airway: Mallampati scale class II Neurological: alert and oriented Last oral intake: >/= 8 hours ASA classification: III Emergent: no Anesthetic plan: proceed Anesthesia type and monitoring: general and standard monitoring Results Review: All pre-operative results and documents have been reviewed as part of the pre-operative evaluation. Informed Consent: The patient's anesthetic plan and its attendant risks and benefits were discussed with the patient/family/POA. Questions were solicited and answers provided to the satisfaction of the patient/family/POA.
[2022-10-30] MEDS: ceFAZolin 2 GM/D5W 50 ML 2 GM/50 ML BAG IVPB (08:35)
[2022-10-30] MEDS: BUPIVACAINE/EPINEPHRINE 0.5% 50 ML VIAL 30 ML INFILTRATE (09:05)
--- NOTE | 2022-10-30 09:57 | W.PM.PROC2 ---
Procedure Note - Detailed Date of Procedure 10/30/22 Pre-op Diagnosis left inguinal hernia Post-op Diagnosis Same Procedure Performed Laparoscopic left inguinal hernia repair with mesh, da Nikolas assisted Surgeon Tez Ulrich, DO Anesthesia General and Local (0.5% bupivacaine with epinephrine) Indications This is a 77-year-old man who presented with left groin pain that started about 3 months ago. He notices a bulge at times as. Was found to have a reducible left inguinal on physical exam. Discussions were made with the patient about treatment options and decision was made to perform laparoscopic left inguinal hernia repair with mesh, da Nikolas assisted. Findings Laparoscopic left inguinal hernia repair was performed. The patient was found to have a moderate-sized indirect left inguinal hernia. Sigmoid colon was going right up near the opening to the hernia defect. There was no evidence of a right inguinal hernia. A robotic transabdominal preperitoneal approach was utilized for repair. Once a wide enough preperitoneal pocket was created in the hernia sac was reduced, I then placed a large left Bard 3DMax mid mesh overlying the entire left myopectineal orifice. Description of Procedure Procedure as well as risks, benefits, and alternatives were discussed with the patient. Written consent was obtained and placed in chart prior to procedure. Patient was brought back to surgical suite. He was placed supine on operating table. Time-out was done to confirm patient and procedure. He was then intubated by Anesthesia Department. His abdomen was prepped and draped in sterile fashion using chlorhexidine prep. 0.5% bupivacaine with epinephrine was infiltrated at each location for incision. An 8 mm incision was made in the left lateral abdomen, and a 5 mm Optiview trocar was advanced through the abdominal layers under direct visualization. Once inside the abdominal cavity, carbon dioxide insufflation was used to create a pneumoperitoneum. A camera was inserted and the abdominal cavity was inspected. The patient was placed in slight Trendelenburg position. An 8 millimeter incision was made on the right lateral abdomen and an 8 millimeter trocar was inserted under direct visualization. Another 8 millimeter incision was made just superior to the umbilicus and an 8 millimeter trocar was inserted under direct visualization. The 5 mm port was then removed and this was replaced with another 8 mm robotic port. The robotic arms were brought up to the patient's bedside and secured to the ports. The camera and instruments were inserted. I then moved over to the robotic console and took control of the camera and instruments. After careful inspection of the abdominal cavity, I began scoring the peritoneum along the left lower quadrant using scissors with electrocautery. The preperitoneal plane was entered and this was carefully dissected caudally along the inferior epigastric vessels. Careful dissection with scissors with electrocautery and blunt dissection was used to continue this dissection. I dissected far enough laterally to allow for mesh placement, and also dissected medially to identify the pubic arch and Judson's ligament. The hernia sac was identified and carefully dissected posteriorly. The cord contents were also identified and the peritoneum was carefully dissected far enough posteriorly to allow for mesh placement. Once an adequate pocket was created, I then placed the mesh within the preperitoneal pocket and carefully unfolded it. The mesh was centered on the hernia defect with adequate overlap circumferentially. The inferior edge of the mesh was inspected to ensure that it was far enough away from the peritoneal edge. The mesh appeared in proper position overlying the entire myopectineal orifice. The mesh was secured using 3-0 Vicryl simple interrupted sutures in Judson's ligament, the superior medial edge, and superior lateral edge of the mesh.
== END 2022-10-30 12:00 | disposition home or self-care (01) ==
PROVIDERS: PCP Internal Medicine; Visit Provider Surgery
PROC: 8E0Y4CZ Robotic Assisted Procedure of Lower Extremity, Percutaneous Endoscopic Approach (ICD-10-PCS; CPT 49650; principal; 2022-10-30 08:30)
DX: K40.90 Unilateral inguinal hernia, without obstruction or gangrene, not specified as recurrent (principal); I48.91 Unspecified atrial fibrillation; J44.9 Chronic obstructive pulmonary disease, unspecified; I10 Essential (primary) hypertension; Z79.82 Long term (current) use of aspirin; Z87.891 Personal history of nicotine dependence
CPT/HCPCS: 49650; S2900; A9270; C1781; J0690; J1100; J1170; J1885; J2405; J2704; J3010; J7030; J7120

== ENCOUNTER 2023-02-06 10:31 | Outpatient (CLI) | payer MEDICARE, BC, SELFPAY ==
--- NOTE | ~2023-02-06 | XR_ITS ---
EXAMINATION: XR chest 2V DATE: 02/06/2023 10:53 INDICATION: One week of coughing and wheezing TECHNIQUE: PA and lateral views of the chest were obtained. COMPARISON: Chest CT dated 09/07/2022 and radiograph dated 08/02/2020 FINDINGS: Again seen is a large hiatal hernia with air-fluid levels within the intrathoracic portion of the sto mach. Portion of the transverse colon can also be seen extending anterior the hernia sac on the prior CT. Unchanged mild linear discoid atelectasis/scarring in the right middle lobe. No other airspace o pacities, pulmonary edema, pleural effusion or pneumothorax. Heart size is normal. A few mid to lower thoracic compression fractures with vertebral plasties at T9 and T12 where there is the greatest deg ree of vertebral body height loss. There are some extravasation of the methylmethacrylate into the di sc space on either side of the vertebral bodies. IMPRESSION: 1. Chronic mild discoid atelectasis/scarring at the right middle lobe. No other acute cardiopulmonary disease. 2. Large hiatal hernia. Reviewed, dictated and finalized at location A. SS CLERK
[2023-02-06 10:48] LABS: Basophils Absolute Auto 0.04 K/mm3 (0.00-0.10); Basophils Percent Auto 0.4 % (0.0-1.0); Eosinophils Absolute Auto 0.03 K/mm3 (0.02-0.50); Eosinophils Percent Auto 0.3 % (1.0-6.0); Hemoglobin 15.6 g/dL (12.4-15.3); Immature Granulocyte Absolute 0.04 K/mm3 (0.00-0.00); Immature Granulocyte Percent A 0.4 % (0.0-0.0); Lymphocytes Absolute Auto 1.63 K/mm3 (1.10-4.50); Lymphocytes Percent Auto 16.9 % (18.0-42.0); Mean Corpuscular HGB Conc 32.5 g/dL (32.0-36.0); Mean Corpuscular Hemoglobin 30.2 pg (27.0-31.0); Mean Corpuscular Volume 92.8 fL (78.0-102.0); Mean Platelet Volume 8.5 fl (8.7-11.0); Monocytes Percent Auto 9.4 % (2.0-11.0); Neutrophils Percent Auto 72.6 % (50.0-70.0); Platelet Count Result 268 K/mm3 (150-420); Red Blood Count 5.17 M/mm3 (4.70-6.10); Red Cell Distribution Width 13.1 % (11.6-14.4); White Blood Count 9.6 K/mm3 (4.8-10.8)
[2023-02-06 11:23] LABS: Alanine Aminotransferase 32 U/L (16-63); Albumin Level 3.8 g/dL (3.4-5.0); Alkaline Phosphatase 152 U/L (46-116); Anion Gap 5 mmol/L (8-16); Aspartate Amino Transferase 18 U/L (15-37); Bilirubin,Total 1.2 mg/dL (0.00-1.00); Blood Urea Nitrogen 13 mg/dL (7-18); Calcium 9.1 mg/dL (8.5-10.1); Carbon Dioxide 33 mmol/L (21-32); Chloride 99 mmol/L (98-108); Estimated Glomerular Filt Rate > 60; Glucose 94 mg/dL (70-99); Osmolality Calculated 284 mOsm/kg (285-295); Potassium 4.4 mmol/L (3.5-5.1); Sodium 137 mmol/L (136-145); Total Protein 6.6 g/dL (6.4-8.2)
[2023-02-06 11:24] LABS: SARS-CoV-2 RNA PCR Negative (Negative)
[2023-02-06 11:44] LABS: Influenza A QL RT-PCR Negative (Negative); Influenza B QL RT-PCR Negative (Negative); RSV RNA, RT-PCR Negative (Negative)
== END 2023-02-06 10:32 | disposition home or self-care (01) ==
PROVIDERS: PCP Internal Medicine; Visit Provider Internal Medicine
DX: R05.9 Cough, unspecified (principal); R91.8 Other nonspecific abnormal finding of lung field; K44.9 Diaphragmatic hernia without obstruction or gangrene
CPT/HCPCS: 36415; 71046; 80053; 85025; 87637

== ENCOUNTER 2023-02-22 09:44 | Outpatient (CLI) | payer MEDICARE, BC, SELFPAY ==
[2023-02-22 10:10] LABS: Basophils Absolute Auto 0.04 K/mm3 (0.00-0.10); Basophils Percent Auto 0.6 % (0.0-1.0); Eosinophils Absolute Auto 0.09 K/mm3 (0.02-0.50); Eosinophils Percent Auto 1.3 % (1.0-6.0); Hematocrit 51.6 % (37.0-46.0); Hemoglobin 16.6 g/dL (12.4-15.3); Immature Granulocyte Absolute 0.02 K/mm3 (0.00-0.00); Immature Granulocyte Percent A 0.3 % (0.0-0.0); Lymphocytes Absolute Auto 2.03 K/mm3 (1.10-4.50); Lymphocytes Percent Auto 29.9 % (18.0-42.0); Mean Corpuscular HGB Conc 32.2 g/dL (32.0-36.0); Mean Corpuscular Hemoglobin 29.9 pg (27.0-31.0); Mean Corpuscular Volume 92.8 fL (78.0-102.0); Mean Platelet Volume 8.2 fl (8.7-11.0); Monocytes Absolute Auto 0.68 K/mm3 (0.10-0.90); Neutrophils Absolute Auto 3.9 K/mm3 (1.7-7.2); Neutrophils Percent Auto 57.9 % (50.0-70.0); Platelet Count Result 341 K/mm3 (150-420); Red Blood Count 5.56 M/mm3 (4.70-6.10); Red Cell Distribution Width 13.2 % (11.6-14.4); White Blood Count 6.8 K/mm3 (4.8-10.8)
[2023-02-22 10:31] LABS: Alanine Aminotransferase 100 U/L (16-63); Albumin Level 3.6 g/dL (3.4-5.0); Alkaline Phosphatase 115 U/L (46-116); Anion Gap 3 mmol/L (8-16); Aspartate Amino Transferase 49 U/L (15-37); Bilirubin,Total 0.9 mg/dL (0.00-1.00); Blood Urea Nitrogen 19 mg/dL (7-18); Calcium 8.3 mg/dL (8.5-10.1); Carbon Dioxide 34 mmol/L (21-32); Chloride 104 mmol/L (98-108); Estimated Glomerular Filt Rate > 60; Glucose 90 mg/dL (70-99); Osmolality Calculated 294 mOsm/kg (285-295); Potassium 3.9 mmol/L (3.5-5.1); Sodium 141 mmol/L (136-145); Total Protein 6.3 g/dL (6.4-8.2)
== END 2023-02-22 09:45 | disposition home or self-care (01) ==
PROVIDERS: PCP Internal Medicine; Visit Provider Internal Medicine
DX: R19.7 Diarrhea, unspecified (principal)
CPT/HCPCS: 36415; 80053; 85025

== ENCOUNTER 2023-02-28 07:04 | Outpatient (CLI) | payer MEDICARE, SELFPAY ==
[2023-02-28 08:06] LABS: Alanine Aminotransferase 49 U/L (16-63); Albumin Level 3.3 g/dL (3.4-5.0); Alkaline Phosphatase 122 U/L (46-116); Anion Gap 5 mmol/L (8-16); Aspartate Amino Transferase 21 U/L (15-37); Bilirubin,Total 0.6 mg/dL (0.00-1.00); Blood Urea Nitrogen 17 mg/dL (7-18); Calcium 8.6 mg/dL (8.5-10.1); Carbon Dioxide 32 mmol/L (21-32); Chloride 104 mmol/L (98-108); Estimated Glomerular Filt Rate > 60; Glucose 89 mg/dL (70-99); Osmolality Calculated 292 mOsm/kg (285-295); Potassium 4.3 mmol/L (3.5-5.1); Sodium 141 mmol/L (136-145)
== END 2023-02-28 07:05 | disposition home or self-care (01) ==
LOC: CHSLAB 07:06
PROVIDERS: PCP Internal Medicine; Visit Provider Internal Medicine
DX: R94.5 Abnormal results of liver function studies (principal)
CPT/HCPCS: 36415; 80053

== ENCOUNTER 2023-09-02 07:05 | Outpatient (CLI) | payer MEDICARE, SELFPAY ==
[2023-09-02 07:25] LABS: Appearance Urine Clear (Clear); Bilirubin Urine Negative (Negative); Blood Urine Negative (Negative); Color Urine Yellow (Yellow); Glucose Urine UA Negative (Negative); Hematocrit 46.6 % (37.0-46.0); Hemoglobin 15.7 g/dL (12.4-15.3); Ketones Urine Negative (Negative); Leukocyte Esterase Ur Negative LEU/UL (Negative); Mean Corpuscular HGB Conc 33.7 g/dL (32-36); Mean Corpuscular Hemoglobin 31.3 pg (27.0-31.0); Mean Corpuscular Volume 92.8 fL (78.0-102.0); Mean Platelet Volume 9.3 fl (8.7-11.0); Nitrate Urine Negative (Negative); Platelet Count Result 201 K/mm3 (150-420); Protein Urine Negative (Negative); Red Blood Count 5.02 M/mm3 (4.70-6.10); Red Cell Distribution Width 13.2 % (11.6-14.4); White Blood Count 5.3 K/mm3 (4.8-10.8); pH Urine 7.5 (5.0-8.0)
[2023-09-02 07:34] LABS: Add Urine Microscopic? YES; Bacteria Urine Trace /hpf; RBC Urine None seen /hpf (0-2); WBC Urine None seen /hpf (0-3)
[2023-09-02 08:24] LABS: Alanine Aminotransferase 21 U/L (16-63); Albumin Level 3.8 g/dL (3.4-5.0); Alkaline Phosphatase 103 U/L (46-116); Anion Gap 5 mmol/L (4-12); Aspartate Amino Transferase 23 U/L (15-37); Bilirubin,Total 0.9 mg/dL (0.00-1.00); Blood Urea Nitrogen 15 mg/dL (7-18); Calcium 8.7 mg/dL (8.5-10.1); Carbon Dioxide 30 mmol/L (21-32); Chloride 104 mmol/L (98-108); Cholesterol 136 mg/dL (0-200); Estimated Glomerular Filt Rate > 60; Ferritin 156 ng/mL (26-388); Glucose 88 mg/dL (70-99); HDL Direct 62 mg/dL (40-60); Iron 100 ug/dL (65-175); LDL Cholesterol Calculated 65 mg/dL (<130); Osmolality Calculated 287 mOsm/kg (285-295); Potassium 4.2 mmol/L (3.5-5.1); Prostate Specific Antigen 1.5 ng/mL (< OR = 4.0); Sodium 139 mmol/L (136-145); Total Protein 6.3 g/dL (6.4-8.2); Triglycerides 45 mg/dL (0-150)
== END 2023-09-02 07:06 | disposition home or self-care (01) ==
LOC: CHSLAB 07:10
PROVIDERS: PCP Internal Medicine; Visit Provider Internal Medicine
DX: I10 Essential (primary) hypertension (principal); N39.0 Urinary tract infection, site not specified; E78.2 Mixed hyperlipidemia; D50.9 Iron deficiency anemia, unspecified; Z12.5 Encounter for screening for malignant neoplasm of prostate
CPT/HCPCS: 36415; 80053; 80061; 81001; 82728; 83540; 84153; 85027; G0103

== ENCOUNTER 2024-01-28 15:05 | Outpatient (CLI) | payer MEDICARE, SELFPAY ==
--- NOTE | ~2024-01-28 | XR_ITS ---
EXAMINATION: XR chest 2V 01/28/2024 15:31 INDICATION: Chills and cough. Chest heaviness. PROCEDURE: 2 view chest COMPARISON: No prior studies for comparison. FINDINGS: The lungs are clear. Large hiatal hernia with air-fluid levels. The cardiomediastinal silho uette is within normal limits. There are no pleural effusions. There is no pneumothorax suspected. There are multiple compression fractures of the thoracic spine with vertebroplasty changes at 2 leve ls. IMPRESSION: 1: NO ACUTE CARDIOPULMONARY DISEASE. 2: Large hiatal hernia. Reviewed, dictated and finalized at location B. PRESIDENT OF MARKETING
[2024-01-28 15:30] LABS: Basophils Absolute Auto 0.04 K/mm3 (0.00-0.10); Basophils Percent Auto 0.6 % (0.0-1.0); Hematocrit 42.5 % (37.0-46.0); Hemoglobin 14.8 g/dL (12.4-15.3); Immature Granulocyte Absolute 0.01 K/mm3 (0.00-0.00); Immature Granulocyte Percent A 0.2 % (0.0-0.0); Lymphocytes Absolute Auto 2.03 K/mm3 (1.10-4.50); Lymphocytes Percent Auto 32.4 % (18.0-42.0); Mean Corpuscular HGB Conc 34.8 g/dL (32-36); Mean Corpuscular Hemoglobin 32.8 pg (27.0-31.0); Mean Corpuscular Volume 94.2 fL (78.0-102.0); Mean Platelet Volume 9.5 fl (8.7-11.0); Monocytes Absolute Auto 0.59 K/mm3 (0.10-0.90); Monocytes Percent Auto 9.4 % (2.0-11.0); Neutrophils Absolute Auto 3.09 K/mm3 (1.70-7.20); Neutrophils Percent Auto 49.4 % (50.0-70.0); Platelet Count Result 161 K/mm3 (150-420); Red Blood Count 4.51 M/mm3 (4.70-6.10); Red Cell Distribution Width 12.8 % (11.6-14.4); White Blood Count 6.3 K/mm3 (4.8-10.8)
[2024-01-28 15:49] LABS: Alanine Aminotransferase 29 U/L (16-63); Albumin Level 3.4 g/dL (3.4-5.0); Alkaline Phosphatase 127 U/L (46-116); Anion Gap 6 mmol/L (4-12); Aspartate Amino Transferase 24 U/L (15-37); Bilirubin,Total 0.5 mg/dL (0.00-1.00); Blood Urea Nitrogen 21 mg/dL (7-18); Carbon Dioxide 33 mmol/L (21-32); Chloride 102 mmol/L (98-108); Estimated Glomerular Filt Rate > 60; Glucose 97 mg/dL (70-99); Osmolality Calculated 295 mOsm/kg (285-295); Potassium 4.7 mmol/L (3.5-5.1); Sodium 141 mmol/L (136-145); Total Protein 6.6 g/dL (6.4-8.2)
== END 2024-01-28 15:06 | disposition home or self-care (01) ==
LOC: CHSLAB 15:07
PROVIDERS: PCP Internal Medicine; Visit Provider Internal Medicine
DX: R05.9 Cough, unspecified (principal); K44.9 Diaphragmatic hernia without obstruction or gangrene
CPT/HCPCS: 36415; 71046; 80053; 85025

== ENCOUNTER 2024-08-28 06:58 | Outpatient (CLI) | payer MEDICARE, BC, SELFPAY ==
--- OUTSIDE RECORDS SUMMARY | 2024-08-28 07:04 | XMS_ITS | Clinical Summary ---
Author Organization [facility] Address [address] [place] [address] Care Team Providers Care Straw Hat Brim Raiser Operator Name Role Phone Dinesh Roper MD Unavailable Rey De La Torre MD Primary Care Provider [phone] Mae Blank RN Unavailable [phone] Source Comments [facility],non-owned Affiliates and Associated Physician Practices is amultiple site organization consisting of ambulatory clinics and [place]in [place] and [place]. This disclosure is being madepursuant to the Care Everywhere program and may not contain all information available regarding this patient. Last updated 17.[facility] Allergies Active Allergy Reactions Criticality Noted Date Comments Amlodipine Base Unknown 01/18/2016 Medications * Be aware that medications may not be up to date on this document. Alwaysverify current medications with the patient. losartan (COZAAR) 100 MG tablet Take 100 mg by mouth once daily Active ferrous gluconate 324 (37.5 FE) MG Take 324 mg by mouth 3 times daily with meals Only takes mon, wed, fri Active Lactobacillus-I nulin ([facility]) capsule Take 1 Cap by mouth once daily Active Multiple Vitamins-Minera ls (MULTIVITAMIN & MINERAL PO) Active diclofenac sodium EC (VOLTAREN) 75 MG tablet Take 1 Tab by mouth 2 times daily 60 Tab 5 01/24/2015 Active Omeprazole (PRILOSEC PO) Active Eliquis 5 MG tablet 09/01/2020 Active aspirin (Aspirin) 325 MG tablet Take 162 mg by mouth once daily Active metoprolol tartrate IR (Lopressor) 25 MG tablet Take 25 tablets by mouth 2 times daily 07/18/2021 Active sildenafil (Viagra) 50 MG tablet Take 50 mg by mouth every 24 hours as needed Active Active Problems Problem Noted Date Diagnosed Date Chest pain 01/20/2016 Dyspnea 01/20/2016 HTN (hypertension) 01/20/2016 Osteoarthrosis involving lower leg 03/10/2013 Overview (05/14/2015): 2015 IMO Updt Immunizations Immunization Administration Dates Next Due INFLUENZA VACCINE 01/08/2015(Deferred: Patient R efused) Social History Tobacco Use Types Packs/Day Years Used Date Smoking Tobacco: Former Alcohol Use Standard Drinks/Week Comments Yes 0 (1 standard drink = 0.6 oz pur e alcohol) Sex and Gender Information Value Date Recorded Sex Assigned at Not on file Legal Sex Male 11:57 AM CLERICAL SECRETARY Gender Identity Not on file Sexual Orientation Not on file Last Filed Vital Signs Vital Sign Reading Time Taken Comments Blood Pressure 119/67 01/08/2015 7:24 AM CLERICAL SECRETARY Pulse 87 01/08/2015 7:24 AM CLERICAL SECRETARY Temperature 36.7 C (98.1 F) 01/08/2015 7:24 AM CLERICAL SECRETARY Respiratory Rate 18 01/08/2015 7:24 AM CLERICAL SECRETARY Oxygen Saturation 94% 01/08/2015 7:24 AM CLERICAL SECRETARY Inhaled Oxygen Concentration - - Weight 98 kg (216 lb) 03/06/2016 2:22 PM CLERICAL SECRETARY Height 180.3 cm (5' 11) 03/06/2016 2:22 PM CLERICAL SECRETARY Body Mass Index 30.13 03/06/2016 2:22 PM CLERICAL SECRETARY Plan of Treatment Health Maintenance Due Date Last Done Comments MEDICARE AWV 12 MONTHS 1945 DTAP/TDAP/TD VACCINES (1 - Tdap) 10/01/1963 PNEUMOCOCCAL VACCINE 50+ (1 of 1 - PCV) 1994 ZOSTER VACCINE (1 of 2) 1994 Respiratory Syncytial Virus (RSV) Vaccine Pt: or over 60 yrs (1 - 1-dose 75+ series) 10/01/2019 COVID-19 VACCINE ( - 2023-2 5 season) 2023 DEPRESSION SCREENING 02/19/2024 INFLUENZA VACCINE (#1) 2024 HEPATITIS B VACCINE Aged Out No longe r eligible based on patient's age to complete this topic HIB VACCINE Aged Out No longer eligi ble based on patient's age to complete this topic HPV VACCINE Aged Out No longer eligi ble based on patient's age to complete this topic MENINGOCOCCAL (Group B) VACC INE SHARED DECISION-MAKING Aged Out No longer eligibl e based on patient's age to complete this topic MENINGOCOCCAL GROUPS A/C/Y/W VACCINE Aged Out No longer eligible b ased on patient's age to complete this topic Medical Devices Implanted Type Area Intelligence Research Specialist Device Identifier Shelf Expiration Date Model / Serial / Lot Rj Bone Harwick Hv Implanted:Qty: 1 on 01/05/2015 by Dinesh Roper MD at [facility] Right: Knee [employer] 08/17/2016 [id number] / / Implt Fem Cr R 72.5mm Implanted:Qty: 1 on 01/05/2015 by Dinesh Roper MD at [facility] Right: Knee [employer] 11/03/2024 [id number] / / [id number] Ty Tibial I Beam Fix Bar 79mm Implanted:Qty: 1 on 01/05/2015 by Dinesh Roper MD at [facility] Right: Knee [employer] 05/18/2024 [id number] / / [id number] Brdg Tib Abena Stbl 16mm X 79mm Implanted:Qty: 1 on 01/05/2015 by Dinesh Roper MD at [facility] Right: Knee [employer] 12/18/2017 [id number] / / [id number] Butn Pat Arcom Wire Polyeth Med 34 X 9mm Implanted:Qty: 1 on 01/05/2015 by Dinesh Roper MD at [facility] Right: Knee [employer] 11/06/2019 [id number] / / [id number] Insurance MEDICARE ANTHEM Advance Directives * Full Code (Latest Code Status on File) Date Activated Date Inactivated Comments 01/05/2015 3:20 PM 01/08/2015 1:25 PM Care Teams Straw Hat Brim Raiser Operator Relationship Specialty [place] [id number] [place] [address] PCP - General Internal Medicine 03/10/13 [place] [id number] [place] [address] Orthopedic Surgery 03/10/13 Mae Blank RN Rodent Control Worker 01/06/15
[2024-08-28 07:14] LABS: Add Urine Microscopic? YES; Appearance Urine Clear (Clear); Glucose Urine UA Negative (Negative); Hematocrit 48.9 % (37.0-46.0); Hemoglobin 15.6 g/dL (12.4-15.3); Immature Granulocyte Percent A 0.0 % (0.0-0.0); Leukocyte Esterase Ur Negative LEU/UL (Negative); Lymphocytes Absolute Auto 1.83 K/mm3 (1.10-4.50); Mean Corpuscular HGB Conc 31.9 g/dL (32-36); Mean Corpuscular Hemoglobin 29.9 pg (27.0-31.0); Mean Corpuscular Volume 93.9 fL (78.0-102.0); Nitrate Urine Negative (Negative); Nucleated Red Blood Cells Absolute Auto 0.00 K/mm3 (0.00-0.00); Nucleated Red Blood Cells Perc 0.0 % (0-0.0); Platelet Count Result 219 K/mm3 (150-420); Red Blood Count 5.21 M/mm3 (4.70-6.10); Specific Grav Ur 1.015 (1.010-1.020); White Blood Count 5.1 K/mm3 (4.8-10.8)
[2024-08-28 07:36] LABS: Alanine Aminotransferase 28 U/L (6-50); Albumin Level 4.0 g/dL (3.5-5.1); Alkaline Phosphatase 105 U/L (38-126); Anion Gap 3 mmol/L (4-12); Aspartate Amino Transferase 34 U/L (17-59); Bilirubin,Total 0.9 mg/dL (0.2-1.3); Blood Urea Nitrogen 17 mg/dL (9-20); Calcium 9.0 mg/dL (8.4-10.2); Carbon Dioxide 32 mmol/L (22-30); Chloride 104 mmol/L (98-107); Cholesterol 152 mg/dL (0-200); Creatine Kinase 59 U/L (55-170); Estimated Glomerular Filt Rate > 60; Glucose 89 mg/dL (65-110); HDL Direct 58 mg/dL; Iron 124 ug/dL (49-181); Osmolality Calculated 288 mOsm/kg (285-295); Potassium 4.7 mmol/L (3.4-5.0); Sodium 139 mmol/L (137-145); Total Protein 6.3 g/dL (6.3-8.2); Triglycerides 70 mg/dL (<150)
[2024-08-28 08:11] LABS: Ferritin 85.90 ng/mL (11.1-264)
== END 2024-08-28 06:59 | disposition home or self-care (01) ==
LOC: CHSLAB 07:03
PROVIDERS: PCP Internal Medicine; Visit Provider Internal Medicine
DX: I10 Essential (primary) hypertension (principal); D50.0 Iron deficiency anemia secondary to blood loss (chronic); N39.0 Urinary tract infection, site not specified; E78.2 Mixed hyperlipidemia
CPT/HCPCS: 36415; 80053; 80061; 81001; 82550; 82728; 83540; 85025

== ENCOUNTER 2025-01-26 09:51 | Outpatient (CLI) | payer MEDICARE, BC, SELFPAY ==
--- NOTE | ~2025-01-26 | XR_ITS ---
EXAMINATION: XR chest 2V DATE: 01/26/2025 10:15 INDICATION: Cough TECHNIQUE: Frontal and lateral views of the chest were obtained. COMPARISON: January 28, 2024 FINDINGS: Large hiatal hernia with air-fluid level stable in appearance. Kyphoplasty changes in lower thoracic vertebral bodies stable in appearance. Mild right basilar atelectatic appearing changes slightly more prominent with small infiltrate or small area of aspiration not excluded. The remaining lung porter are clear. IMPRESSION: 1. Possible small area of infiltrate or aspiration in the right lower lobe. 2. Other findings as above. Reviewed, dictated and finalized at location A. NING FRAME TENDER
[2025-01-26 10:06] LABS: Hematocrit 48.2 % (37.0-46.0); Hemoglobin 15.6 g/dL (12.4-15.3); Mean Corpuscular HGB Conc 32.4 g/dL (32-36); Mean Corpuscular Hemoglobin 30.2 pg (27.0-31.0); Mean Corpuscular Volume 93.4 fL (78.0-102.0); Platelet Count Result 298 K/mm3 (150-420); Red Blood Count 5.16 M/mm3 (4.70-6.10); White Blood Count 6.2 K/mm3 (4.8-10.8)
[2025-01-26 10:17] LABS: Alanine Aminotransferase 30 U/L (6-50); Albumin Level 4.4 g/dL (3.5-5.1); Alkaline Phosphatase 105 U/L (38-126); Anion Gap 5 mmol/L (4-12); Aspartate Amino Transferase 42 U/L (17-59); Bilirubin,Total 0.9 mg/dL (0.2-1.3); Blood Urea Nitrogen 12 mg/dL (9-20); Calcium 9.0 mg/dL (8.4-10.2); Carbon Dioxide 31 mmol/L (22-30); Chloride 105 mmol/L (98-107); Estimated Glomerular Filt Rate > 60; Glucose 95 mg/dL (65-110); Osmolality Calculated 291 mOsm/kg (285-295); Potassium 4.2 mmol/L (3.4-5.0); Sodium 141 mmol/L (137-145); Total Protein 6.8 g/dL (6.3-8.2)
[2025-01-26 10:26] LABS: NT Pro B Type Natriuretic Pept 178 pg/mL (19.9-100)
[2025-01-26 10:31] LABS: Strep Group A RT-PCR NOT DETECTED (Negative)
[2025-01-26 10:43] LABS: Influenza A QL RT-PCR Negative (Negative); Influenza B QL RT-PCR Negative (Negative); RSV RNA, RT-PCR Negative (Negative); SARS-CoV-2 RNA PCR Negative (Negative)
== END 2025-01-26 09:52 | disposition home or self-care (01) ==
PROVIDERS: PCP Internal Medicine; Visit Provider Internal Medicine
DX: R05.9 Cough, unspecified (principal); R06.00 Dyspnea, unspecified; R50.9 Fever, unspecified; R91.8 Other nonspecific abnormal finding of lung field
CPT/HCPCS: 36415; 71046; 80053; 83880; 85027; 87637; 87651